=== PATIENT | female | born 1935 | race Caucasian/White ===

== ENCOUNTER 2019-09-25 16:56 | Outpatient (REF) | payer SELFPAY ==
[2019-09-26 15:37] LABS: COVID-19 RT-PCR Result NEGATIVE (Negative)
== END 2019-09-25 17:16 ==
LOC: LBN 16:56
PROVIDERS: Visit Provider Nurse Practitioner Adult Health
DX: Z20.828 Contact with and (suspected) exposure to other viral communicable diseases (principal)
CPT/HCPCS: U0003

== ENCOUNTER 2019-10-02 16:32 | Outpatient (REF) | payer SELFPAY ==
[2019-10-03 18:52] LABS: COVID-19 RT-PCR UVMMC Result Negative (Negative)
== END 2019-10-02 16:52 ==
LOC: LBN 16:32
PROVIDERS: Visit Provider Nurse Practitioner Adult Health
DX: Z03.818 Encounter for observation for suspected exposure to other biological agents ruled out (principal)
CPT/HCPCS: U0003

== ENCOUNTER 2019-10-28 11:30 | Outpatient (REF) | payer SELFPAY ==
[2019-10-29 19:57] LABS: COVID-19 RT-PCR Result Not Detected ((See Note))
== END 2019-10-28 11:50 ==
LOC: LBN 11:30
PROVIDERS: Visit Provider Nurse Practitioner Adult Health
DX: Z03.818 Encounter for observation for suspected exposure to other biological agents ruled out (principal)
CPT/HCPCS: U0003

== ENCOUNTER 2019-12-09 12:24 | Outpatient (REF) | payer SELFPAY ==
[2019-12-09 12:47] LABS: Abs Immature Grans 0.04 10^3/uL (0.0-0.06); Absolute Basophil Count 0.03 10^3/uL (0.0-0.2); Absolute Eosinophil Count 0.05 10^3/uL (0.0-0.7); Absolute Lymphocyte Count 1.29 10^3/uL (1.2-3.4); Absolute Neutrophil Count 8.15 10^3/uL (1.2-6.7); Basophils % 0.3; Eosinophils % 0.5; HCT 31.2 % (36.0-46.0); HGB 10.1 g/dL (11.2-15.7); Immature Grans % 0.4; MCH 31.7 pg (27.0-33.0); MCHC 32.4 % (32.0-36.0); MCV 97.8 fL (80-95); MPV 10.6 fL (8.0-11.0); Neutrophils % 81.8 %; Platelet Count 414 10^3/uL (130-400); RBC 3.19 10^6/uL (3.93-5.22); RDW 14.7 % (11.7-14.6); WBC 9.96 10^3/uL (4.4-10.8)
[2019-12-09 13:02] LABS: Anion Gap 11.1 mmol/L (3-11); BUN 22 mg/dL (7-18); CO2 25.9 mmol/L (21.0-32.0); CREATININE 0.95 mg/dL (0.55-1.02); Calcium 9.5 mg/dL (8.5-10.1); Chloride 104 mmol/L (98-107); Estimated GFR 56.18 (mL/min/1.73m2); Glucose 88 mg/dL (74-106); Potassium 4.4 mmol/L (3.5-5.1); Sodium 141 mmol/L (136-145)
== END 2019-12-09 12:44 ==
LOC: LBN 12:24
PROVIDERS: Visit Provider Nurse Practitioner Adult Health
DX: E78.6 Lipoprotein deficiency (principal); E78.5 Hyperlipidemia, unspecified; Q60.2 Renal agenesis, unspecified; R32 Unspecified urinary incontinence
CPT/HCPCS: 80048; 85025

== ENCOUNTER 2019-12-11 11:42 | Outpatient (REF) | payer SELFPAY ==
[2019-12-12 18:27] LABS: COVID-19 RT-PCR Result Not Detected ((See Note))
== END 2019-12-11 12:02 ==
LOC: LBN 11:42
PROVIDERS: PCP Family Medicine; Visit Provider Nurse Practitioner Adult Health
DX: Z11.59 Encounter for screening for other viral diseases (principal)
CPT/HCPCS: U0003

== ENCOUNTER 2019-12-17 14:08 | Outpatient (REF) | payer SELFPAY ==
[2019-12-19 14:51] LABS: COVID-19 RT-PCR Result NEGATIVE (Negative)
== END 2019-12-17 14:28 ==
LOC: LBN 14:08
PROVIDERS: PCP Family Medicine; Visit Provider Nurse Practitioner Adult Health
DX: Z11.59 Encounter for screening for other viral diseases (principal)
CPT/HCPCS: U0003